=== PATIENT | male | born 1985 | race Hispanic/Latino ===

== ENCOUNTER 2016-09-30 23:00 | Emergency (ER) | payer OTHER ==
[2016-09-30] MEDS ORDERED: TENIVAC IM ONE (23:22)
--- NOTE | 2016-09-30 23:33 | Emergency Department Report ---
HPI - General Chief Complaint: Dizziness Time Seen by Provider: 09/30/16 23:18 - HPI HPI: This is a 30-year-old male presents to the emergency department with complaint of right forearm pain and a laceration after the patient was fixing a transmission and it fell onto his forearm. The patient was in triage when they were examining the wound and trying to clean it, due to the excessive amount of dirt and grime, and the patient became clammy, diaphoretic and passed out. Patient is currently awake and says he feels fine but that he does "not do well with blood." He is unsure of his last tetanus vaccination. He does not have a primary care doctor. No past nuchal history. He did not take anything for symptoms prior to presentation. He is right-hand dominant. ED Past Medical Hx - Past Medical History Previous Medical History?: No - Surgical History Past Surgical History?: No - Social History Smoking Status: Never Smoker Substance Use Type: None - Medications Home Medications: Home Medications Medication Instructions Recorded Confirmed Last Taken Type Sulfamethoxazole/Trimethoprim 1 each PO BID #10 tablet 10/01/16 Unknown Rx [Bactrim DS TAB] ED Review of Systems ROS: Stated complaint: LACERATION TO RT ARM Other details as noted in HPI Comment: All other systems reviewed and negative Constitutional: denies: chills, fever Eyes: denies: eye pain, eye discharge, vision change ENT: denies: ear pain, throat pain Respiratory: denies: cough, shortness of breath, wheezing Cardiovascular: denies: chest pain, palpitations Gastrointestinal: denies: abdominal pain, nausea, diarrhea Genitourinary: denies: urgency, dysuria Musculoskeletal: arthralgia. denies: back pain Skin: other (laceration). denies: rash, lesions Neurological: denies: headache, weakness, paresthesias Physical Exam - Physical Exam Vital Signs: Vital Signs 09/30/16 23:07 Pulse Rate 58 L Respiratory 16 Rate Blood Pressure 78/43 Physical Exam: GENERAL: The patient is well-developed well-nourished. HEENT: Normocephalic. Atraumatic. Extraocular motions are intact. Patient has moist mucous membranes. Pupils equal reactive to light bilaterally. NECK: Supple. Trachea is midline. CHEST/LUNGS: Clear to auscultation. There is no respiratory distress noted. HEART/CARDIOVASCULAR: Regular. There is no tachycardia. There is no gallop rub or murmur. ABDOMEN: Abdomen is soft, nontender. Patient has normal bowel sounds. There is no abdominal distention. SKIN: There is a right dorsal forearm laceration that is about 3 cm in length, linear, with sharp edges. The patient's hands and forearms are covered in dirt and grime.There is no bleeding, weeping or drainage NEURO: The patient is awake, alert, and oriented. The patient is cooperative. The patient has no focal neurologic deficits. The patient has normal speech. MUSCULOSKELETAL: . There is some tenderness palpation to the right forearm with the patient has a laceration. However otherwise there is no obvious deformity. Radial pulses +2 over 4 bilaterally. Cap refill less than 2 seconds. There is no limitation range of motion. 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 ED Course Vital Signs 09/30/16 23:07 Pulse Rate 58 L Respiratory 16 Rate Blood Pressure 78/43 - Laceration /Wound Repair Right Arm Wound Location: upper extremity (Right mid dorsal forearm) Wound Length (cm): 3 Wound's Depth, Shape: superficial, linear Wound Explored: lots of grime and dirt around the wound but none inside Irrigated w/ Saline (ccs): 50 Betadine Prep?: Yes Anesthesia: 1% Lidocaine Volume Anesthetic (ccs): 3 Wound Repaired With: sutures Suture Size/Type: 5:0 Number of Sutures: 8 Layer Closure?: No Sterile Dressing Applied?: Yes ED Medical Decision Making - Radiology Data Radiology results: image reviewed interpreted by me: X-ray of the right forearm does not show any fracture, dislocation or any foreign body. - Medical Decision Making 30-year-old male got his right forearm caught underneath a transmission he was fixing and it causes some mild pain and a laceration. X-ray does not show any fracture or any foreign body or acute process. Laceration was cleaned and repaired with sutures. He was placed on some antibiotics. He was given a tetanus booster. He will follow-up with a primary care doctor for wound check and suture removal. - Differential Diagnosis laceration, fracture, dislocation, contusion Critical Care Time: No Critical care attestation.: If time is entered above; I have spent that time in minutes in the direct care of this critically ill patient, excluding procedure time. ED Disposition Clinical Impression: Forearm laceration Qualifiers: Encounter type: initial encounter Laterality: right Qualified Code(s): S51.811A - Laceration without foreign body of right forearm, initial encounter Forearm pain Qualifiers: Laterality: right Qualified Code(s): M79.631 - Pain in right forearm Disposition: DISCHARGED TO HOME OR SELFCARE Is pt being admited?: No Condition: Stable Instructions: Suture Care (ED), Laceration (ED) Additional Instructions: Please follow-up with a primary care doctor in the next few days. The sutures will need to be removed in 7 days and can be done so at a primary care office, urgent care, or back in the emergency department. Use soap and water to clean the area and then keep it dry. Cover the wound if you're going to be working or doing something where it might get dirty. You need to be seen sooner with any development of redness around the wound or any discharge of pus showing signs of infection. Prescriptions: Sulfamethoxazole/Trimethoprim [Bactrim DS TAB] 1 each PO BID #10 tablet Referrals: CEE ACEVEDO MD [Primary Care Provider] - 3-5 Days SAPPHIRE BATISTA MD [Staff Physician] - 3-5 Days [facility] [Outside] - 3-5 Days Time of Disposition: 00:59
[2016-09-30] MEDS ORDERED: XYLOCAINE 2% INFILTRATI ONE (23:57)
[2016-10-01 00:40] VITALS: BP 103/58
--- NOTE | 2016-10-01 11:41 | XRay Report ---
X-RAY RIGHT FOREARM THREE VIEWS : 09/30/16 23:33:00 CLINICAL: Trauma and pain. 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 FINDINGS: Normal bones and joints. Soft tissue laceration at the lateral aspect of the forearm at the junction of middle and distal thirds. No foreign body or soft tissue air. IMPRESSION: Soft tissue laceration but otherwise normal.
== END 2016-10-01 01:14 | disposition home or self-care (01) ==
LOC: ED 23:00
DX: S51.811A Laceration without foreign body of right forearm, initial encounter (principal); W20.8XXA Other cause of strike by thrown, projected or falling object, initial encounter; Y93.89 Activity, other specified; Y99.8 Other external cause status; Y92.89 Other specified places as the place of occurrence of the external cause
CPT/HCPCS: 90471; 90714; 93005; 93010